=== PATIENT | female | born 1960 | race Caucasian/White ===

== ENCOUNTER → 2021-03-22 | Outpatient (CLI) | payer OTHER ==
--- NOTE | 2021-03-23 08:30 | REP ---
INDICATION: RT FOOT PAIN. Plantar fasciitis right foot. Patient reports right foot pain for 3-4 months. COMPARISON: None. TECHNIQUE: Axial, coronal, and sagittal imaging planes utilized. T1 and T2 weighted scans are included with without fat saturation. FINDINGS: There is an area of increased T2 and decreased T1 signal intensity in the distal and of the 2nd metatarsal. There is subtle flattening of the cortical margin at the distal 2nd metatarsal suggesting stress or traumatic fracture with review active edema. There is a small quantity of fluid at the dorsal aspect of the 3rd MTP joint. There is a ganglion cyst in the the plantar soft tissues between the 3rd and 4th proximal metatarsals. This cyst measures 1.7 cm in proximal to distal dimension by 0.5 cm in greatest diameter. There is also mild pattern of marrow edema on either side of the articulation between the navicular bone and the medial cuneiform consistent with midfoot arthropathy. Subtle changes are seen at the articulation between the proximal 4th metatarsal and the cuboid. Cortical and medullary bone signal intensity are otherwise normal. There is a small amount of joint fluid visible at the IP joint of the great toe. There is thickening and increased signal intensity of the proximal portion of the plantar fascia consistent with the clinical history of plantar fasciitis. A small quantity of fluid is seen here along with heel spurring. The Achilles tendon is intact. At the ankle there is an additional septated ganglion cyst anterolaterally measuring 1.3 cm in greatest diameter. IMPRESSION: 1. There is evidence of plantar fasciitis. 2. There is midfoot arthropathy. 3. Increased signal intensity is seen in the distal end of the 2nd metatarsal suggesting recent or stress fracture. <Electronically signed by Osmar Solis > 03/23/21 [id number]
== END ==
LOC: M RAD 16:47
PROVIDERS: ATTEND Podiatrist Foot & Ankle Surgery
DX: M72.2 Plantar fascial fibromatosis (principal)